=== PATIENT | female | born 1965 | race Caucasian/White ===

== ENCOUNTER 2023-12-09 11:31 | Emergency (ER) | payer OTHER ==
[2023-12-09] VITALS (12 sets, daily range): BP systolic 100–135; BP diastolic 52–113
[~2023-12-09] VITALS: Ht 160 cm; Wt 76.4 kg
[2023-12-09] MEDS ORDERED: ASPIRIN 81 MG/TAB PO ONE (11:50)
[2023-12-09] MEDS ORDERED: MORPHINE SULFATE 4 MG/ML VIAL IV ONE (11:50)
[2023-12-09 12:17] LABS: BASO% 0.9 % (0-3); HEMATOCRIT 43.4 % (37.0-47.0); HEMOGLOBIN 14.7 g/dl (12.0-16.0); IMMATURE GRANULOCYTES 0.1 % (0.0-5.0); LYMPH% 23.4 % (15-41); MEAN CELL VOLUME 93.5 fL CALC (80.0-100.0); MEAN CORPUSCULAR HGB 31.7 pG CALC (26.0-32.0); MEAN CORPUSCULAR HGB CONC 33.9 g/dL CAL (32.0-36.0); MONO% 6.3 % (2-13); NEUT# 5.43 thou/uL (2.00-7.15); NEUT% 66.3 % (42-76); RED BLOOD COUNT 4.64 mill/uL (4.20-5.60); RED CELL DISTRI WIDTH 12.6 % (11.5-15.5)
[2023-12-09 12:22] LABS: ALBUMIN 4.7 g/dL (3.2-5.0); BILIRUBIN, TOTAL 0.5 mg/dL (0.02-1.3); CREATININE 0.6 mg/dL (0.5-1.0); POTASSIUM 4.4 mmol/l (3.5-5.1)
[2023-12-09 12:27] LABS: D-DIMER 0.42 mg/L (0.19-0.60)
[2023-12-09 12:28] LABS: INTERNATIONAL NORMALIZED RATIO 1.1 RATIO (0.7-1.3)
[2023-12-09 12:33] LABS: PROTHROMBIN TIME 10.1 SECONDS (9.0-12.5)
== END 2023-12-09 16:35 | disposition home or self-care (01) | DRG 313 ==
LOC: ED 11:31
PROVIDERS: Emergency Medicine
DX: R07.89 Other chest pain (principal); Z72.0 Tobacco use